=== PATIENT | female | born 1995 | race Caucasian/White ===

== ENCOUNTER 2020-12-07 13:22 | Emergency (ER) | payer MEDICAID, SELFPAY ==
[2020-12-07 13:49] VITALS: BP 147/80; PULSE 70; RESP 16; TEMP 37; O2SAT 96; BMI 27.4
--- NOTE | 2020-12-07 14:05 | [facility].EDSKAF ---
ED Disposition Clinical Impression: Cellulitis Qualifiers: Site of cellulitis: extremity Site of cellulitis of extremity: lower extremity Laterality: right Qualified Code(s): L03.115 - Cellulitis of right lower limb Abscess of skin or subcutaneous tissue Qualifiers: Site of cutaneous abscess: extremity Site of cutaneous abscess of extremity: lower extremity Laterality: right Qualified Code(s): L02.415 - Cutaneous abscess of right lower limb Disposition: Home, Self-Care Condition on Discharge: Good Instructions: DI for Skin Abscess Referrals: PCP,No [Primary Care Provider] - 3 days Time of Disposition: 14:10 - Critical Care Critical Care Time: No Attestation: On 12/07/20, the high probability of a clinically significant, sudden or life threatening deterioration of the following system(s) required my full and direct attention, intervention and personal management. The time I documented below is in addition to time spent performing reported procedures but includes the following listed in this critical care notation. Medical Decision Making - Navid Inquiry Pt receiving controlled substance: No Vital Signs: 12/07/20 13:49 Temperature 98.6 F Temperature Source Oral Pulse Rate [Right Radial] 70 Respiratory Rate 16 Blood Pressure [Right Arm] 147/80 H Blood Pressure Mean [Right Arm] 102 Blood Pressure Source [Right Arm] Automatic Cuff Blood Pressure Position [Right Arm] Sitting 02 Sat by Pulse Oximetry 96 Oxygen Delivery Method Room Air - Lab Data Lab results reviewed: Yes: I reviewed the patient's lab results. Medical Decision Narrative: 25yo F evaluated for likely abscess of the right lower extremity. Patient is in no acute distress on initial evaluation. She is on Bactrim DS at this time is only taken 2 pills. I suspect Bactrim would probably be enough to take care of of her localized infection however she is concerned. Discussed indication for I&D. Discussed warm compresses. We will go and cover the patient with second antibiotic at this time just for faster resolution and as it is currently recommended. Patient counseled on return to emergency department parameters. Skin/Abscess/FB HPI - General Chief complaint: Skin/Abscess/Foreign Body Stated complaint: right leg swollen and red Time Seen by Provider: 12/07/20 13:45 Mode of Arrival: Ambulatory Limitations: No Limitations Description of Symptoms (Recalled from ER Triage Doc. by RN): Infection right inner thigh - History of Present Illness HPI narrative: 25yo F presents to the emergency department with concern for abscess to her right medial thigh over the distal aspect. Patient reports lesion appeared yesterday and she was evaluated in [place] urgent care. She was started on Bactrim DS. She is taken two doses of her antibiotics thus far. Lesion was outlined yesterday and has exceeded the parameters of the demarcation. Denies fever, nausea/vomiting/diarrhea. Denies previous episodes similar. Denies any history of drug abuse. - Related Data Home Medications Medication Instructions Recorded Confirmed Montelukast Sodium [Singulair 10mg 10 mg PO DAILY 04/03/19 04/03/19 tablet] norgestimate-ethinyl estradioL 1 tab PO DAILY 04/03/19 04/03/19 [Tri-Sprintec Tablet] Allergies Allergy/AdvReac Type Severity Reaction Status Date / Time No Known Allergies Allergy Verified 12/07/20 13:57 [facility] History - Hepatitis A Screen Drug use history?: No High risk sexual behaviors?: No History of sexually transmitted infection?: No Currently employed?: No Childcare worker?: No Do you have indoor plumbing?: Yes Do you have electricity?: Yes Attestation statement:: This patient has been screened for Hepatitis A risk factors. I have reviewed the patient's past medical history: Yes Other Surgeries: Yes: No Previous Surgery - Social History Smoking Status: Never smoker Alcohol Intake: never Occupational Status: employed, other R
[2020-12-07 14:33] VITALS: BP 133/78; PULSE 76; RESP 17; TEMP 36.8; O2SAT 98
== END 2020-12-07 14:35 | disposition home or self-care (01) ==
PROVIDERS: Emergency Provider Nurse Practitioner
DX: L03.115 Cellulitis of right lower limb (principal)
CPT/HCPCS: 99281

== ENCOUNTER → 2021-10-13 11:42 | Outpatient (CLI) | payer MEDICAID, SELFPAY ==
[2021-10-13 12:09] LABS: Basophils # 0.1 K/mm3 (0-0.2); Basophils % 1.2 % (0.1-2.0); Eosinophils # 0.1 K/mm3 (0.0-0.4); Eosinophils % 0.8 % (0.1-12.0); Hemoglobin 14.4 g/dL (12.2-16.2); Lymphocytes # 3.4 K/mm3 (0.7-4.5); Lymphocytes % 31.5 % (10-50); Mean Corpuscular HGB Conc 32.7 g/dL (31.8-35.4); Mean Corpuscular Hemoglobin 29.5 pg (27.0-31.2); Mean Corpuscular Volume 90.2 fl (81-99); Mean Platelet Volume 9.8 fl (7.4-10.4); Monocytes # 0.5 K/mm3 (0.1-1.0); Monocytes % 4.9 % (1.7-9.3); Neutrophils # 6.7 K/mm3 (1.8-7.8); Neutrophils % 61.5 % (37.0-80.0); Platelet Count 278 K/mm3 (142-424); Red Blood Count 4.88 M/mm3 (4.20-5.40); Red Cell Distribution Width 13.1 % (11.5-17.5); White Blood Count 10.9 K/mm3 (4.8-10.8)
[2021-10-13 13:45] LABS: Alanine Aminotransferase 36 U/L (12-78); Albumin Level 4.4 g/dl (3.5-5.0); Albumin/Globulin Ratio 1.8 (1.1-1.8); Alkaline Phosphatase 77 U/L (38-126); Anion Gap 11.6 mEq/L (5-15); Aspartate Amino Transferase 34 U/L (14-36); Bilirubin,Total 0.6 mg/dl (0.2-1.3); Blood Urea Nitrogen 12 mg/dl (7-17); Calcium 9.5 mg/dl (8.4-10.2); Carbon Dioxide 30 mmol/L (22.0-30.0); Chloride 101 mmol/L (98-107); Cholesterol 106 mg/dl (140-200); Estimated Glomerular Filt Rate 152 ml/min (>60); GFR (African American) 183 ML/MIN (>60); Globulin 2.5 g/dL (1.3-3.2); Glucose 97 mg/dl (74-100); HDL Cholesterol 52 mg/dl (40-60); Potassium 4.6 mmoL/L (3.5-5.1); Sodium 138 mmol/L (136-145); Total Protein,Serum 6.9 g/dl (6.3-8.2); Triglycerides 56 mg/dl (30-150); VLDL Cholesterol 11 mg/dL (0-40)
[2021-10-13 14:17] LABS: Thyroid Stimulating Hormone 1.29 uIU/mL (0.465-4.68)
== END ==
PROVIDERS: PCP Nurse Practitioner Family; Visit Provider Nurse Practitioner Family
DX: Z00.00 Encounter for general adult medical examination without abnormal findings (principal)
CPT/HCPCS: 36415; 80053; 80061; 84443; 85025